=== PATIENT | female | born 1965 | race Two or more races ===

== ENCOUNTER 2017-08-29 12:08 | Outpatient (CLI) | payer BC | END 2017-08-29 23:59 | disposition home or self-care (01) | LOC: WOU 12:08 | PROVIDERS: ATTEND Surgery | DX: C50.311 Malignant neoplasm of lower-inner quadrant of right female breast (principal); Z17.0 Estrogen receptor positive status [ER+]; Z98.82 Breast implant status | CPT/HCPCS: G0463 ==

== ENCOUNTER 2017-09-04 11:42 | Outpatient (CLI) | payer BC ==
[2017-09-07] MEDS ORDERED: OXYC-133 PO (14:49)
[2017-09-07] MEDS ORDERED: SULF1TAB48 PO (14:49)
== END 2017-09-04 23:59 | disposition home or self-care (01) ==
LOC: RAD 11:42
PROVIDERS: ATTEND Surgery
DX: C50.911 Malignant neoplasm of unspecified site of right female breast (principal)
CPT/HCPCS: A9541

== ENCOUNTER 2017-09-11 13:21 | Outpatient (CLI) | payer BC ==
[~2017-09-11 13:21] MED LIST: OXYC-133 PO; SULF1TAB48 PO
== END 2017-09-11 23:59 | disposition home or self-care (01) ==
LOC: WOU 13:21
PROVIDERS: ATTEND Surgery
DX: Z48.3 Aftercare following surgery for neoplasm (principal); C50.311 Malignant neoplasm of lower-inner quadrant of right female breast; Z90.13 Acquired absence of bilateral breasts and nipples; Z80.42 Family history of malignant neoplasm of prostate
CPT/HCPCS: A6402; G0463; Z7610

== ENCOUNTER 2017-09-15 08:00 | Outpatient (CLI) | payer BC | END 2017-09-15 23:59 | disposition home or self-care (01) | LOC: WOU 08:00 | PROVIDERS: ATTEND Surgery | DX: Z48.3 Aftercare following surgery for neoplasm (principal); C50.311 Malignant neoplasm of lower-inner quadrant of right female breast; Z90.13 Acquired absence of bilateral breasts and nipples; Z80.42 Family history of malignant neoplasm of prostate; Z80.9 Family history of malignant neoplasm, unspecified | CPT/HCPCS: A6402; G0463; Z7610 ==

== ENCOUNTER 2017-10-30 11:21 | Outpatient (CLI) | payer BC | END 2017-10-30 23:59 | disposition home or self-care (01) | LOC: WOU 11:21 | PROVIDERS: ATTEND Surgery | DX: C50.311 Malignant neoplasm of lower-inner quadrant of right female breast (principal); Z90.13 Acquired absence of bilateral breasts and nipples; N60.32 Fibrosclerosis of left breast | CPT/HCPCS: 99215; Z7610; G0463 ==

== ENCOUNTER 2018-04-16 10:50 | Outpatient (CLI) | payer BC | END 2018-04-16 23:59 | disposition home or self-care (01) | LOC: WOU 10:50 | PROVIDERS: ATTEND Surgery | DX: Z48.3 Aftercare following surgery for neoplasm (principal); C50.311 Malignant neoplasm of lower-inner quadrant of right female breast; Z90.13 Acquired absence of bilateral breasts and nipples; N65.0 Deformity of reconstructed breast | CPT/HCPCS: G0463 ==

== ENCOUNTER 2018-07-02 13:00 | Outpatient (CLI) | payer BC | END 2018-07-02 23:59 | disposition home or self-care (01) | LOC: WOU 13:00 | PROVIDERS: ATTEND Surgery | DX: Z48.89 Encounter for other specified surgical aftercare (principal); N65.0 Deformity of reconstructed breast; Z90.13 Acquired absence of bilateral breasts and nipples | CPT/HCPCS: G0463 ==

== ENCOUNTER 2018-07-24 05:46 | Day surgery (SDC) | payer BC ==
[~2018-07-24] VITALS: Ht 177.8 cm; Wt 76.2 kg
[2018-07-24 06:00] VITALS: BP 135/93
--- NOTE | 2018-07-24 06:00 | NUR ---
RN Notes Patient is direct admit from home for scheduled surgery at 0730. Alert and oriented x4, denies any pain and discomfort at this time. Consent for surgery and blood transfusion signed by the patient. Inserted IV access on right AC gauge 18, with good blood return. Skin checked done, skin clear and intact. Ring on left second toe intact, unable to remove, included in the pre op checklist. Plan of care discussed with the patient and verbalized understanding. Kept comfortable and attended with call light within reach.
[2018-07-24 06:31] VITALS: BP 135/93
--- NOTE | 2018-07-24 06:55 | NUR ---
RN Notes Patient picked up by OR tech in stable condition.
[2018-07-24] MEDS ORDERED: FENTANYL PF 250MCG/5ML AMPUL ONE (07:28)
[2018-07-24] MEDS ORDERED: MIDAZOLAM HCL 2 MG/2ML VIAL ONE (07:28)
[2018-07-24] MEDS ORDERED: FENTANYL PF 100MCG/2ML AMPUL ONE (07:29)
[2018-07-24] MEDS ORDERED: FAMOTIDINE/PF INJ 20 MG/2 ML VIAL IV ONE (07:29)
[2018-07-24] MEDS ORDERED: ANESTHESIA TRAY IN PYXIS 1 EA TRAY MC ONE (07:32)
--- NOTE | 2018-07-24 07:33 | NUR ---
MS RN OPENING NOTES RECEIVED REPORT FROM NIGHT NURSE. PT NOT PRESENT IN THE UNIT AT THIS TIME.
[2018-07-24] MEDS ORDERED: LIDOCAINE HCL/PF 1% 30 ML SDV ONE (07:34)
[2018-07-24] MEDS ORDERED: SEVOFLURANE 250 ML BOTTLE IH ONE (07:34)
[2018-07-24] MEDS ORDERED: LIDOCAINE 1%-EPI 1:100,000 20 ML VIAL ONE (08:20)
[2018-07-24 10:25] VITALS: BP 159/81
--- NOTE | 2018-07-24 10:38 | NUR ---
MS RN NOTES PT ARRIVED THE UNIT AT 1025 WITH 2 NURSES ASSIST. TRANSFER PUMPER NN, IN THE UNIT MADE AWARE WELL.
--- NOTE | 2018-07-24 10:39 | NUR ---
MS RN NOTES VITAL SIGNS TAKEN AND RECORDED. PT STATED MILD PAIN AT 2-3, TOLERABLE AND REFUSES TO HAVE ANY PAIN MEDICATIONS AT THIS TIME. ALL BELONGINGS OF PT WITH THE AND NOT PRESENT AT THE UNIT ATT THIS TIME. MD ORDERED FOR PT TO HAVE REGULAR DIET, PT AWARE. PT ALSO STATING SHE'S READY TO GO HOME.
[2018-07-24] MEDS ORDERED: MULT-24 PO (11:01)
[2018-07-24] MEDS ORDERED: TAMO20TA4 PO (11:01)
[2018-07-24] MEDS ORDERED: LACT1CAP71 PO (11:01)
[2018-07-24] MEDS ORDERED: OMEP20TA20 PO (11:01)
[2018-07-24] MEDS ORDERED: HYDROCODONE/APAP 5/325MG 1 EACH TABLET PO ONE (13:00)
--- NOTE | 2018-07-24 14:12 | NUR ---
MS BILINGUAL LOAN PROCESSOR NOTES PT TO DISCHARGE HOME. PRESENT BEDSIDE. PT STATED MILD PAIN IS PRESENT BUT TOLERABLE.; PT JUST HAD A NORCO AN HOUR AGO AND STATED EFFECTIVE. PT TOLERATING RA, WITH NO ACUTE RESPIRATORY DISTRESS NOTED. REVIEWED AND SIGNED DISCHARGE INSTRUCTIONS AND INVENTORY LIST WITH PT; ALL BELONGINGS OF PT IS WITH THE . ALL NEEDS AND CARE PROVIDED. PIV TO RFA REMOVED, APPLIED WITH DRY DRESSING. VS STABLE. AEROSOL LINE OPERATOR ESCORTED PT TO THE LOBBY VIA WHEELCHAIR. CN/CHASE AND MD MIR AWARE OF DISCHARGE. PT LEFT THE UNIT AT 1405.
--- NOTE | 2018-07-24 14:15 | NUR ---
RN NOTES PT REFUSED TO HAVE INCISION SITE TO BE TAKEN A PICTURE. PT ALSO STATES "OH THERE'S NO DRESSING. I'M SURPRISE IT'S NOT DRAINING, I EXPECT IT TO BE SOME FLUID LEAKING BUT NOT. IT'S DRY AND CLEAN." PT AWARE OF FOLLOW UP WITH WOUND CENTER AND PRIMARY CARE PHYSICIAN.
== END 2018-07-24 14:00 | disposition home or self-care (01) ==
LOC: DS 05:46 → MED 05:48 → UNDOADMIN 05:48 → UNDODISIN 14:00 → DS 14:00
PROVIDERS: ATTEND Surgery
DX: C50.311 Malignant neoplasm of lower-inner quadrant of right female breast (principal); N65.0 Deformity of reconstructed breast; K21.9 Gastro-esophageal reflux disease without esophagitis; Z90.13 Acquired absence of bilateral breasts and nipples; Z79.899 Other long term (current) drug therapy; Z79.82 Long term (current) use of aspirin
CPT/HCPCS: 19380; J2250; J3010 ×2; J3490 ×3; G0378; J0330; J0690; J1100; J2405; J2704; J2765

== ENCOUNTER 2018-07-27 08:55 | Outpatient (CLI) | payer BC ==
[~2018-07-27 08:55] MED LIST changes: +LACT1CAP71 PO; +MULT-24 PO; +OMEP20TA20 PO; +TAMO20TA4 PO
== END 2018-07-27 23:59 | disposition home or self-care (01) ==
LOC: WOU 08:55
PROVIDERS: ATTEND Surgery
DX: Z48.89 Encounter for other specified surgical aftercare (principal); Z90.13 Acquired absence of bilateral breasts and nipples; Z98.82 Breast implant status
CPT/HCPCS: G0463